=== PATIENT | male | born 1960 | race Caucasian/White ===

== ENCOUNTER 2018-08-15 18:54 | Emergency (ER) | payer BC ==
[~2018-08-15] VITALS: Ht 190.5 cm; Wt 120.0 kg
--- NOTE | 2018-08-15 20:15 | NUR ---
relieving RN for break, pt is moaning softly, Dr Nelson at bedside to eval pt
[2018-08-15] MEDS ORDERED: normal saline 1000ML IV soln IVB ONE (20:20)
[2018-08-15] MEDS ORDERED: ondansetron/PF 4mg/2ml inj IV ONE ×2 (20:20→21:45)
[2018-08-15] MEDS: morphine 4 MG/ML inj SYRINge IV PRN ×2 (20:45→20:58)
--- NOTE | 2018-08-15 20:48 | NUR ---
PT GIVEN MSIV 4 MG, ZOFRAN, AND NS 1 LITER STARTED. PT JUST RETURNED FROM CT.
[2018-08-15] MEDS ORDERED: LIDOcaine 1% w/epiNEPHrine 1:200,000 30ml vial IM ONE ×2 (20:50→20:55)
--- NOTE | 2018-08-15 20:59 | NUR ---
DR LANGSTON AT BEDSIDE INJECTNIG LIDOCAINE INTO LACERATION TO LEFT CHEEK
--- NOTE | 2018-08-15 21:20 | NUR ---
PT CALLING FOR UPDATE. PT PROVIDED WITH A PHONE AND HE UPDATED HER. DR. LANGSTON JUST FINISHED SUTURING THE LACERATION.
--- NOTE | 2018-08-15 21:30 | NUR ---
CT READ BACK AND PT WITH ORBITAL FRACTURES AND WILL NEED TO BE TRANSFERRED.
[2018-08-15] MEDS ORDERED: morphine 4 MG/ML inj SYRINge IV STA (21:41)
--- NOTE | 2018-08-15 21:41 | NUR ---
VERBAL RECEIVED FOR ADTL MORPHINE AND ZOFRAN
[2018-08-15 21:47] VITALS: BP 170/105
--- NOTE | 2018-08-15 22:13 | NUR ---
DR TAFOYA TALKING WITH PT AND AND HIS . TO DRIVE PT TO [facility] FOR TRANSFER. PT WITH STABLE VS.
--- NOTE | 2018-08-15 22:29 | NUR ---
REPORT GIVEN TO CONI PEDRO, [facility].
== END 2018-08-15 22:32 | disposition short-term general hospital (02) ==
LOC: ER 18:54
DX: S02.32XA Fracture of orbital floor, left side, initial encounter for closed fracture (principal); S02.40DA Maxillary fracture, left side, initial encounter for closed fracture; S02.2XXA Fracture of nasal bones, initial encounter for closed fracture; S01.412A Laceration without foreign body of left cheek and temporomandibular area, initial encounter; I10 Essential (primary) hypertension; W50.0XXA Accidental hit or strike by another person, initial encounter; Y93.75 Activity, martial arts; Y92.89 Other specified places as the place of occurrence of the external cause; Y99.8 Other external cause status
CPT/HCPCS: 12011; 70450; 70486; 96361; 96374; 96375; 96376; 99285; J2270; J2405; J3490; J7030

== ENCOUNTER 2022-09-21 09:14 | Emergency (ER) | payer BC ==
[~2022-09-21] VITALS: Ht 182.9 cm; Wt 180.0 kg
[2022-09-21 09:34] LABS: BASOPHILS # (AUTO) 0.1 X10'3 (0-0.2); BASOPHILS % (AUTO) 1.3 % (0-1); EOSINOPHILS # (AUTO) 0.1 X10'3 (0-0.9); EOSINOPHILS % (AUTO) 2.3 % (0-6); HEMATOCRIT 40.8 % (42.0-52.0); HEMOGLOBIN 13.7 g/dl (14.0-17.9); LYMPHOCYTES # (AUTO) 1.6 X10'3 (1.1-4.8); LYMPHOCYTES % (AUTO) 25.6 % (21-51); MEAN CORPUSCULAR HEMOGLOBIN 28.9 PG (27.0-31.0); MEAN CORPUSCULAR HGB CONC 33.5 g/dL (33.0-36.5); MONOCYTES # (AUTO) 0.7 X10'3 (0-0.9); MONOCYTES % (AUTO) 10.5 % (2-12); NEUTROPHILS # (AUTO) 3.8 X10'3 (1.8-7.7); NEUTROPHILS % (AUTO) 60.3 % (42-75); PLATELET COUNT 287 X10'3 (140-440); RED BLOOD COUNT 4.75 X10'6 (4.70-6.10); RED CELL DISTRIBUTION WIDTH 13.6 % (11.5-14.5); WHITE BLOOD COUNT 6.3 X10'3 (4.5-11.0)
[2022-09-21 10:03] LABS: ALANINE AMINOTRANSFERASE 21 U/L (12-78); ALBUMIN 3.7 G/DL (3.4-5.0); ALBUMIN/GLOBULIN RATIO 1.1 (1.1-1.5); ALKALINE PHOSPHATASE 74 IU/L (46-116); ANION GAP 8 (8-16); ASPARTATE AMINO TRANSFERASE 20 U/L (10-37); BILIRUBIN,TOTAL 0.3 MG/DL (0.1-1.0); BLOOD UREA NITROGEN 10 MG/DL (7-18); BUN/CREATININE RATIO 9.5 (10.0-20.0); CALCIUM 8.9 MG/DL (8.5-10.1); CHLORIDE 106 MMOL/L (99-107); CREATININE 1.05 MG/DL (0.60-1.10); GLUCOSE 73 MG/DL (70-104); POTASSIUM 3.8 MMOL/L (3.5-5.1); SODIUM 143 MMOL/L (135-145); TOTAL CARBON DIOXIDE 28.9 MMOL/L (24-32); eGFR 72 ML/MIN
[2022-09-21 10:18] LABS: MAGNESIUM 2.3 MG/DL (1.5-2.4)
[2022-09-21 13:40] VITALS: BP 128/77
== END 2022-09-21 13:42 | disposition home or self-care (01) ==
LOC: ER 09:14
DX: R01.1 Cardiac murmur, unspecified (principal); R07.89 Other chest pain; I10 Essential (primary) hypertension
CPT/HCPCS: 36415; 71045; 80053; 83735; 83880; 84484; 85025; 93005; 99285